=== PATIENT | male | born 2000 | race Caucasian/White ===

== ENCOUNTER → 2020-05-18 | Outpatient (CLI) | payer OTHER, SELFPAY ==
[2015-09-23 18:58] VITALS: BMI 25.1
== END | disposition home or self-care (01) ==
PROVIDERS: PCP Family Medicine; Referring Provider Registered Nurse; Visit Provider Registered Nurse
DX: J06.9 Acute upper respiratory infection, unspecified (principal)
CPT/HCPCS: 87635; U0003

== ENCOUNTER → 2025-06-23 | Outpatient (CLI) | payer BC, SELFPAY ==
--- OUTSIDE RECORDS SUMMARY | 2025-06-23 11:31 | XMS RPT_ITS | CCD ---
Author Organization [facility] Care Team Providers Care Meter Reader Chief Name Role Phone Delores Griffin LPN Unavailable Unavailable Delores Griffin LPN Unavailable Unavailable Problems Problem Classification Problem Date Documented Da te Episodic/Chronic Allergic reactions (2 sources) Irritant contact dermatitis; Translations: [Irritant contact dermatitis, unspecified cause] Onset: 04-17-2017 04-17-2017 Episodic Other non-traumatic joint disorders (5 sources) Pain in right shoulder; Translations: [Shoulder joint unstable] Onset: 08-17-2014 03-11-2016 Episodic Other non-traumatic joint disorders (1 source) Shoulder joint unstable; Translations: [Other instability, unspecified shoulder] Onset: 08-17-2014 08-17-2014 Episodic Results Test Name Value Interpretation Reference Range Facility [facility] COVID-19,JIMENEZ Not Detected Normal Not Detected [facility] Comment on above: Result Comment: This nucleic acid amplification test was developed and its performance characteristics determined by [employer]. Nucleic acid amplification tests include PCR and TMA. This test has not been FDA cleared or approved. This test has been authorized by FDA under an Emergency Use Authorization (EUA). This test is only authorized for the duration of time the declaration that circumstances exist justifying the authorization of the emergency use of in vitro diagnostic tests for detection of SARS-CoV-2 virus and/or diagnosis of COVID-19 infection under section 564(b)(1) of the Act, 21 U.S.C. 360bbb-3(b) (1), unless the authorization is terminated or revoked sooner. When diagnostic testing is negative, the possibility of a false negative result should be considered in the context of a patient's recent exposures and the presence of clinical signs and symptoms consistent with COVID-19. An individual without symptoms of COVID-19 and who is not shedding SARS-CoV-2 virus would expect to have a negative (not detected) result in this assay. Performed By: #### L [id number] #### [facility] (refer to report for specific site) refer to report for address and phone number Office Visit: [facility]: [facility] on [place] n[place] 04-17-2017 Documentation of current medications (procedure) Done Invalid Interpretation Code [facility] Work Phone: Documentation of current medications (procedure) T Invalid Interpretation Code [facility] Work Phone: Fall risk assessment No Invalid Interpretation Code [facility] Work Phone: Protein mass conc Done [facility] Work Phone: Protein mass conc T [facility] Work Phone: Tobacco smoking status NHIS Never Invalid Interpretation Code [facility] Work Phone: Tobacco smoking status NHIS Never smoker [facility] Work Phone: Tobacco use [facility] Never smoker Invalid Interpretation Code [facility] Work Phone: Vital Signs Date Time Vital Sign Value Performing Clinician Faci lity 04-17-2017 13:50-0400 BMI (Body Mass Index) 28.96 kg/m2 [facility] Work Phone: 04-17-2017 13:50-0400 Body Temperature 98.1 [degF] Delores Griffin [facility] Work Phone: 04-17-2017 13:50-0400 BP Diastolic 54 mm[Hg] Delores Griffin [facility] Work Phone: 04-17-2017 13:50-0400 BP Systolic 114 mm[Hg] Delores Griffin [facility] Work Phone: 04-17-2017 13:50-0400 Height 181.61 cm [facility]: 04-17-2017 13:50-0400 Pulse (Heart Rate) 72 /min [facility] Work Phone: 04-17-2017 13:50-0400 Weight 95.53 kg Delores Griffin LPN [facility] Work Phone: Plan of Treatment Date Care Activity Detail Author Start: 04-17-2017 End: 04-17-2017 Appointment Appointment [facility] Work Phone: Start: 03-05-2016 End: 03-05-2016 Physical Therapy General Physical Therapy [facility], [address] [place] [address], [id number] [facility] Work Phone: Start: 08-24-2014 End: 09-03-2014 Smoking cessation education SNOMED-CT: [id number] Smoking Cessation Counseling [facility] Work Phone: Start: 08-17-2014 End: 08-17-2014 Contrast x-ray of shoulder Arthrogram - shoulder [facility] Work Phone: Start: 08-17-2014 End: 08-24-2014 X-ray exam of shoulder X-Ray, Shoulder [facility] Work Phone: Summary Purpose Family History No Family History Records Found Advance Directives No Advanced Directives Records Found Additional Source Comments (unrecognized sect ion and content) No Status Records Found INFORMATION SOURCE (unrecogn ized section and content) DATE CREATED AUTHOR 05/22/2020 [facility] FOR RECORDS PERTAINING TO PATIENTS WHO ARE OR HAVE BEEN ENROLLED IN A CHEMICAL DEPENDENCY/SUBSTANCEABUSE PROGRAM, SOME INFORMATION MAY BE OMITTED. This clinical summary was aggregated from multiple sources. Caution should be exercised in using it in the provision of clinical care. This summary normalizes information from multiple sources, and as a consequence, information in this document may materially change the coding, format and clinical context of patient data. In addition, data may be omitted in some cases. CLINICAL DECISIONS SHOULD BE BASED ON THE PRIMARY CLINICAL RECORDS. [employer] provides no warranty or guarantee of the accuracy or completeness of information in this document.
--- OUTSIDE RECORDS SUMMARY | 2025-06-23 11:31 | XMS RPT_ITS | CCD ---
Author Organization [facility] Care Team Providers Care Special Equipment Technician Name Role Phone Delores Griffin LPN Unavailable [...] Interpretation Reference Range Facility [facility] COVID-19,JIMENEZ Not Detected Normal Not Detected [facility] Comment on above: Result Comment: This nucleic acid amplification test was developed and its performance characteristics determined by [employer]. Nucleic acid amplification tests include PCR and [...] current medications (procedure) Done Invalid Interpretation Code [facility] Work Phone: Documentation of current medications (procedure) T Invalid Interpretation Code [facility] Work Phone: Fall risk assessment No Invalid Interpretation Code [facility] Work Phone: Protein mass conc Done [facility] Work Phone: Protein mass conc T [facility] Work Phone: Tobacco smoking status NHIS Never Invalid Interpretation Code [facility] Work Phone: Tobacco smoking status NHIS Never smoker [facility] Work Phone: Tobacco use [facility] Never smoker Invalid Interpretation Code [facility] Work Phone: Vital Signs Date Time Vital Sign Value Performing Clinician Faci lity 04-17-2017 13:50-0400 BMI (Body Mass Index) 28.96 kg/m2 [facility] Work Phone: 04-17-2017 13:50-0400 Body Temperature 98.1 [degF] Delores Griffin [facility] Work Phone: 04-17-2017 13:50-0400 BP Diastolic 54 mm[Hg] Delores Griffin [facility] Work Phone: 04-17-2017 13:50-0400 BP Systolic 114 mm[Hg] Delores Griffin [facility] Work Phone: 04-17-2017 13:50-0400 Height 181.61 cm [facility] Work Phone: 04-17-2017 13:50-0400 Pulse (Heart Rate) 72 /min Delores [facility] Work Phone: 04-17-2017 13:50-0400 Weight 95.53 kg Delores Griffin LPN [facility] Work Phone: Plan of Treatment Date Care Activity Detail Author Start: 04-17-2017 End: 04-17-2017 Appointment Appointment [facility] Work Phone: Start: 03-05-2016 End: 03-05-2016 Physical Therapy General Physical Therapy [facility], [address] [place] [address], [id number] [facility] Work Phone: Start: 08-24-2014 End: 09-03-2014 Smoking cessation education SNOMED-CT: [id number] Smoking Cessation Counseling [facility] Work Phone: Start: 08-17-2014 End: 08-17-2014 Contrast x-ray of shoulder Arthrogram - shoulder [facility] Work Phone: Start: 08-17-2014 End: 08-24-2014 X-ray exam of shoulder X-Ray, Shoulder [facility] Work Phone: Summary Purpose Family History No Family History Records Found Advance Directives No Advanced Directives Records Found Additional Source Comments (unrecognized sect ion and content) No Status Records Found INFORMATION SOURCE (unrecogn ized section and content) DATE CREATED AUTHOR 05/22/2020 [facility] FOR RECORDS PERTAINING TO PATIENTS WHO ARE [...] BE BASED ON THE PRIMARY CLINICAL RECORDS. [employer] provides no warranty or guarantee of the accuracy or completeness of information in this document.
[2025-06-23 12:35] LABS: Hematocrit 44.0 % (40-54); Hemoglobin 14.8 g/dL (13.0-16.5); Immature Granulocytes Count 0.010 X10^3/uL (0.0-0.0); Mean Corp Hgb Conc 33.6 g/dL (32-36); Mean Corpuscular Volume 84.3 fL (80-94); Mean Platelet Vol. 11.3 fl (6.2-12.0); NRBC Flagged by Analyzer 0 % (0-5); Platelet Count 260 K/mm3 (150-450); RBC Distribution Width CV 12.6 % (11.6-14.6); RBC Distribution Width SD 38.1 fl (35.1-43.9); Red Blood Count 5.22 M/mm3 (4.6-6.2); White Blood Count 6.8 K/mm3 (4.4-11.0)
[2025-06-23 15:31] LABS: AST(SGOT) 52 U/L (<=37); Alanine Aminotransfer ALT/SGPT 108 U/L (<=46); Albumin, Serum 4.8 g/dL (3.5-5.0); Alkaline Phosphatase 62 U/L (40-129); Anion Gap 11 (5-15); BUN 17 mg/dL (4-19); BUN/Creat Ratio 21.4 RATIO (10-20); Calcium,Total 10.0 mg/dL (7.6-11.0); Carbon Dioxide 25.3 mmol/L (21.0-32.0); Chloride 101 mmol/L (98-108); Globulin 2.8 g/dL (2.2-4.2); Glucose 90 mg/dL (70-99); Lipase 30 U/L (13-75); Potassium 3.9 mmol/L (3.3-5.1)
== END | disposition home or self-care (01) ==
LOC: MFPLAB 11:07
PROVIDERS: PCP Family Medicine; Visit Provider Family Medicine
DX: R10.11 Right upper quadrant pain (principal)
CPT/HCPCS: 36415; 80053; 83690; 85025

== ENCOUNTER → 2025-06-23 | Outpatient (CLI) | payer BC, SELFPAY ==
--- NOTE | 2025-06-23 15:24 | CT_ITS ---
PROCEDURE: ABDOMEN WITH IV CONTRAST 06/23/2025 REASON FOR EXAM: RUQ PAIN TECHNIQUE: Procedure Code: CTABDW Modality: CT Procedure: ABDOMEN WITH IV CONTRAST Multiplanar Sagittal and Coronal images were obtained. One or more dose reduction techniques were used (e.g., Automated exposure control, adjustment of the mA and/or kV according to patient size, use of iterative reconstruction technique. CONTRAST: Isovue-300 VOLUME: 98 mL RADIATION DOSE SUMMARY: CTDlvol: 30 mGy DLP: 818 mGycm COMPARISON: None FINDINGS: Lung bases: Clear Liver: Diffuse fatty liver. Gallbladder: Contracted gallbladder. No calculi seen. No biliary duct dilation. Spleen: Normal. Pancreas: Normal Adrenals: Normal Kidneys: Normal renal sizes. No hydronephrosis. Bowel: Stomach, small bowel colon appear unremarkable. Portions are not seen in the pelvis. Appendix is normal. Lymph nodes: None appear enlarged. 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 No significant spondylolisthesis. CT/Abdomen WITH IV Contrast IMPRESSION: 1. Diffuse fatty liver. This can be a source of right-sided pain. 2. Contracted gallbladder. Otherwise unremarkable. 3. Normal appendix 4. Bilateral pars defects lumbosacral junction. No spondylolisthesis. Reading Location: [id number]
== END | disposition home or self-care (01) ==
PROVIDERS: PCP Family Medicine; Referring Provider Family Medicine; Visit Provider Family Medicine
DX: R10.11 Right upper quadrant pain (principal)
CPT/HCPCS: 74160; Q9967